=== PATIENT | male | born 1985 | race Caucasian/White ===

== ENCOUNTER 2020-04-29 20:02 | Emergency (ER) | payer OTHER ==
[2020-04-29 20:13] VITALS: BP 150/102; PULSE 90; TEMP 98.2; BMI 33.0
== END 2020-04-29 22:15 | disposition home or self-care (01) ==
LOC: FER 20:02
DX: S86.912A Strain of unspecified muscle(s) and tendon(s) at lower leg level, left leg, initial encounter (principal)
CPT/HCPCS: 99283-25

== ENCOUNTER 2020-07-06 16:49 | Emergency (ER) | payer OTHER ==
[2020-07-06 17:14] VITALS: BP 128/84; PULSE 78; TEMP 98.4; BMI 33.0
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
== END 2020-07-06 17:32 | disposition home or self-care (01) ==
LOC: FER 16:49
DX: S01.81XA Laceration without foreign body of other part of head, initial encounter (principal)
CPT/HCPCS: 99282-25

== ENCOUNTER 2020-07-29 17:51 | Emergency (ER) | payer OTHER ==
--- OUTSIDE RECORDS SUMMARY | 2020-07-29 17:59 | XMS ---
:1985 Author Organization [facility] Support Name Relationship Address Phone REKHA ACHARYA [address] [place] [address] [place] [address] REKHA ACHARYA Spouse [address] [place] [address] Re-disclosure Warning The records that you are about to access may contain information from federally- assisted alcohol or drug abuse programs. If such information is present, then the following federally mandated warning applies: This information has been disclosed to you from records protected by federal confidentiality rules (42 CFR part 2). The federal rules prohibit you from making any further disclosure of this information unless further disclosure is expressly permitted by the written consent of the person to whom it pertains or as otherwise permitted by 42 CFR part 2. A general authorization for the release of medical or other information is NOT sufficient for this purpose. The Federal rules restrict any use of the information to criminally investigate or prosecute any alcohol or drug abuse patient.The records that you are about to access may contain highly sensitive health information, the redisclosure of which is protected by Article 27-F of the [facility] Public Health law. If you continue you may haveaccess to information: Regarding HIV / AIDS; Provided by facilities licensed or operated by the [facility] Office of Mental Health; or Provided by the [facility] Office for People With Developmental Disabilities. If such information is present, then the following [facility] mandated warning applies: This information has been disclosed to you from confidential records which are protected by state law. State law prohibits you from making any further disclosure of this information without the specific written consent of the person to whom it pertains, or as otherwise permitted by law. Any unauthorized further disclosure in violation of state law may result in a fine or long-term sentence or both. A general authorization for the release of medical or other information is NOT sufficient authorization for further disclosure. Insurance Providers Payer name Policy type Policy ID Covered Covered constitution party's Policy P abdirashid / Coverage constitution party ID relationship to [facility] ormation type willis PMA Management [id number] SP [id number] [employer] PENDING WC/NF [id number] SP [id number] ONLY PMA Management [id number] SP [id number] [employer] POMCO RISK [id number] SP [id number] MANAGEMENT [facility] [id number] SP [id number] [facility] [id number] SP [id number] [facility] Results ID Date Data Source [id number] 02/01/2020 12:00:00 AM EDT [facility] Name Value Range Interpretation Code Description Data Delia rce(s) Supporting Document(s ) 2019-nCoV [facility] RNA XXX MARCELO+probe- Imp This lab was ordered by [facility] and reported by [employer] Procedure
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
[2020-07-29 18:11] VITALS: BP 128/89; PULSE 90; TEMP 99.2; BMI 34.4
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
== END 2020-07-29 19:04 | disposition home or self-care (01) ==
LOC: FER 17:51
DX: M25.562 Pain in left knee (principal)
CPT/HCPCS: 99283-25

== ENCOUNTER 2020-10-07 19:49 | Emergency (ER) | payer OTHER ==
[2020-10-07 20:08] VITALS: BP 124/74; PULSE 57; TEMP 97.8; BMI 33.0
== END 2020-10-07 21:18 | disposition home or self-care (01) ==
LOC: FER 19:49
DX: S16.1XXA Strain of muscle, fascia and tendon at neck level, initial encounter (principal); S80.00XA Contusion of unspecified knee, initial encounter
CPT/HCPCS: 72050-TC-FY; 73562-TC-LT-FY; 73562-TC-RT-FY; 99284-25

== ENCOUNTER 2021-05-11 17:20 | Emergency (ER) | payer OTHER ==
[2021-05-11 18:08] VITALS: BP 140/102; PULSE 69; TEMP 97.9; BMI 33.0
== END 2021-05-11 18:16 | disposition home or self-care (01) ==
LOC: FER 17:20
DX: M25.562 Pain in left knee (principal)
CPT/HCPCS: 99283-25

== ENCOUNTER 2022-05-02 22:45 | Emergency (ER) | payer OTHER ==
[2022-05-02 22:51] VITALS: BP 131/84; PULSE 78; TEMP 98.8; BMI 33.0
== END 2022-05-02 23:31 | disposition home or self-care (01) ==
LOC: FER 22:45
DX: S93.401A Sprain of unspecified ligament of right ankle, initial encounter (principal); X50.0XXA Overexertion from strenuous movement or load, initial encounter; Y35.891A Legal intervention involving other specified means, law enforcement official injured, initial encounter
CPT/HCPCS: 73610-TC-RT-FY; 99283-25

== ENCOUNTER 2022-08-17 19:17 | Emergency (ER) | payer OTHER ==
[2022-08-17 19:38] VITALS: BP 128/70; PULSE 73; RESP 15; TEMP 97.9; BMI 33.0
== END 2022-08-17 19:53 | disposition home or self-care (01) ==
LOC: FER 19:17
DX: S93.401A Sprain of unspecified ligament of right ankle, initial encounter (principal)
CPT/HCPCS: 99283-25

== ENCOUNTER 2022-08-19 20:17 | Emergency (ER) | payer OTHER ==
[2022-08-19 20:28] VITALS: BP 135/87; PULSE 88; RESP 17; TEMP 99.4; BMI 33.0
[2022-08-19] MEDS ORDERED: IBUPROFEN 600 MG TABLET (FP) PO ONE (20:41)
[2022-08-19] MEDS ORDERED: LIDOCAINE 5% TOPICAL PATCH TP ONE (20:41)
[2022-08-19] MEDS ORDERED: METHOCARBAMOL 500 MG TABLET PO ONE (20:41)
[2022-08-19] MEDS ORDERED: IBUPROFEN 400 MG TABLET (FP) PO ONE (20:44)
[2022-08-19] MEDS ORDERED: METHOCARBAMOL 500 MG TABLET ONE (20:45)
[2022-08-19] MEDS ORDERED: LIDOCAINE 5% TOPICAL PATCH ONE (20:45)
[2022-08-19] MEDS ORDERED: LIDOCAINE PATCH REMOVAL MC SCH (22:00)
== END 2022-08-19 20:51 | disposition home or self-care (01) ==
LOC: FER 20:17
DX: M62.830 Muscle spasm of back (principal)
CPT/HCPCS: 99283-25

== ENCOUNTER 2023-04-01 18:54 | Emergency (ER) | payer OTHER ==
[2023-04-01 19:17] VITALS: BP 155/102; PULSE 92; RESP 15; TEMP 99; BMI 32.8
[2023-04-01] MEDS ORDERED: IBUPROFEN 400 MG TABLET (FP) PO ONE ×2 (19:23→19:26)
== END 2023-04-01 19:34 | disposition home or self-care (01) ==
LOC: FER 18:54
DX: S50.02XA Contusion of left elbow, initial encounter (principal); M25.522 Pain in left elbow; V43.52XA Car driver injured in collision with other type car in traffic accident, initial encounter; Y93.I9 Activity, other involving external motion; Y92.410 Unspecified street and highway as the place of occurrence of the external cause
CPT/HCPCS: 99283-25

== ENCOUNTER 2024-04-05 19:39 | Emergency (ER) | payer OTHER ==
[2024-04-05 19:50] VITALS: BP 127/84; PULSE 120; RESP 22; TEMP 97.4; BMI 34.4
== END 2024-04-05 20:51 | disposition home or self-care (01) ==
LOC: FER 19:39
DX: S80.911A Unspecified superficial injury of right knee, initial encounter (principal); X58.XXXA Exposure to other specified factors, initial encounter
CPT/HCPCS: 73562-TC-RT-FY; 99283-25